=== PATIENT | female | born 1985 | race Caucasian/White ===

== ENCOUNTER → 2017-06-10 | Outpatient (CLI) | payer OTHER ==
[2017-06-11 01:11] LABS: Mumps Virus IgG Ab Interp POSITIVE (NEGATIVE); Rubeola (Measles) IgG 5.4 AI; Varicella zoster IgG Interp POSITIVE (NEGATIVE)
== END ==
LOC: MMGSC 13:52
PROVIDERS: ATTEND Family Medicine
DX: Z01.84 Encounter for antibody response examination (principal)
CPT/HCPCS: 36415; 86735; 86762; 86765; 86787